=== PATIENT | female | born 1975 | race Caucasian/White ===

== ENCOUNTER 2018-05-15 01:46 | Emergency (ER) | payer SELFPAY ==
[~2018-05-15] VITALS: Ht 149.9 cm; Wt 57.0 kg
[2018-05-15] MEDS ORDERED: LIDOCAINE HCL/PF 1% 10 MG/ML 5ML VIAL IJ ONE (04:15)
[2018-05-15 05:19] VITALS: BP 120/75
== END 2018-05-15 05:21 | disposition home or self-care (01) ==
LOC: ER 01:46
DX: L02.01 Cutaneous abscess of face (principal); F17.200 Nicotine dependence, unspecified, uncomplicated; Z98.890 Other specified postprocedural states
CPT/HCPCS: 10060; 81025; 99283; J3490; X7700; Z7610

== ENCOUNTER 2018-05-17 13:45 | Emergency (ER) | payer SELFPAY | END 2018-05-17 18:43 | disposition left against medical advice (07) | LOC: ER 15:54 | DX: Z53.21 Procedure and treatment not carried out due to patient leaving prior to being seen by health care provider (principal) ==

== ENCOUNTER 2018-09-17 16:03 | Emergency (ER) | payer SELFPAY ==
[~2018-09-17] VITALS: Ht 149.9 cm; Wt 59.0 kg
[2018-09-17 16:14] VITALS: BP 124/53
== END 2018-09-17 19:30 | disposition left against medical advice (07) ==
LOC: ER 16:03
DX: R07.81 Pleurodynia (principal); R10.13 Epigastric pain; Z53.21 Procedure and treatment not carried out due to patient leaving prior to being seen by health care provider

== ENCOUNTER 2019-06-27 01:55 | Emergency (ER) | payer SELFPAY ==
[~2019-06-27] VITALS: Ht 147.3 cm; Wt 66.0 kg
[2019-06-27 02:06] VITALS: BP 132/59
== END 2019-06-27 06:10 | disposition left against medical advice (07) ==
LOC: ER 01:55
DX: Z53.21 Procedure and treatment not carried out due to patient leaving prior to being seen by health care provider (principal)